=== PATIENT | male | born 1980 | race African-American/Black ===

== ENCOUNTER 2023-05-26 01:47 | Emergency (ER) | payer SELFPAY ==
[~2023-05-26] VITALS: Ht 180.3 cm; Wt 92.3 kg
[2023-05-26 02:30] VITALS: O2SAT 100
[2023-05-26] MEDS ORDERED: PERM60CR4 TP (04:10)
[2023-05-26] MEDS ORDERED: PERMETHRIN 5% CREAM 60GM TOP ONE (04:15)
[2023-05-26] MEDS ORDERED: IBUPROFEN 600MG TABLET PO ONE (04:15)
[2023-05-26 04:35] VITALS: BP 175/95; PULSE 83; RESP 18; TEMP 98
== END 2023-05-26 04:19 | disposition home or self-care (01) ==
LOC: ER 01:47
DX: B86 Scabies (principal); M79.671 Pain in right foot; M79.672 Pain in left foot
CPT/HCPCS: 99283